=== PATIENT | female | born 1945 | race Caucasian/White ===

== ENCOUNTER 2023-03-06 18:10 | Outpatient (CLI) | payer MEDICARE, SELFPAY | END 2023-03-06 18:11 | disposition home or self-care (01) | LOC: NFLDREF 03-08 05:49 | PROVIDERS: Visit Provider Nurse Practitioner Family | DX: R30.0 Dysuria (principal); N39.0 Urinary tract infection, site not specified | CPT/HCPCS: 87086; 87186 ==

== ENCOUNTER 2023-05-04 16:17 | Outpatient (CLI) | payer MEDICARE, SELFPAY | END 2023-05-04 16:18 | disposition home or self-care (01) | LOC: NFLDREF 05-06 06:38 | PROVIDERS: PCP Registered Nurse; Referring Provider Registered Nurse; Visit Provider Nurse Practitioner Family | DX: N39.0 Urinary tract infection, site not specified (principal) | CPT/HCPCS: 87086 ==

== ENCOUNTER 2023-06-11 15:45 | Outpatient (CLI) | payer MEDICARE, SELFPAY | END 2023-06-11 15:46 | disposition home or self-care (01) | LOC: NFLDREF 06-12 14:59 | PROVIDERS: PCP Registered Nurse; Referring Provider Registered Nurse; Visit Provider Physician Assistant | DX: R30.0 Dysuria (principal); N39.0 Urinary tract infection, site not specified | CPT/HCPCS: 87086; 87186 ==

== ENCOUNTER 2024-03-20 10:49 | Outpatient (CLI) | payer MEDICARE, SELFPAY | END 2024-03-20 10:50 | disposition home or self-care (01) | LOC: NFLDREF 04-07 14:24 | PROVIDERS: PCP Registered Nurse; Referring Provider Registered Nurse; Visit Provider Nurse Practitioner Family | DX: N39.0 Urinary tract infection, site not specified (principal) | CPT/HCPCS: 87086; 87186 ==

== ENCOUNTER 2024-04-22 17:06 | Inpatient (IN) | payer MEDICARE, SELFPAY ==
[2024-04-22] VITALS (23 sets, daily range): BP systolic 99–127; BP diastolic 51–75; PULSE 81–141; RESP 18–20; TEMP 36.4–37.1; O2SAT 92–98; BMI 25.8; BMI 27.8
--- NOTE | 2024-04-22 17:44 | CRLHL7_ITS ---
For Patients: As a result of the Century Cures Act, medical imaging exams and procedure reports are released immediately into your electronic medical record. You may view this report before your referring provider. If you have questions, please contact your health care provider. Indication: Cough and fever Technique: Volumetric multidetector CT images of the chest were obtained without the administration of IV contrast. Comparison: Two-view chest April 22, 2024 Findings: The thoracic inlet and thyroid gland are unremarkable. The thoracic aorta is nonaneurysmal. There is no mediastinal, hilar or axillary adenopathy. There is mild central bronchial thickening with minimal mucoid impaction of the lower lobe bronchi. There is basilar atelectasis and parenchymal scar without dense consolidation, effusion or pneumothorax. There is no evidence of pulmonary mass or suspicious pulmonary nodule. The partially visualized upper abdominal viscera are within normal limits. The thoracic vertebral body heights are grossly maintained with endplate Schmorl`s defects. There is diffuse flowing anterior osteophytosis without evidence of significant spondylolisthesis. Impression: [id number] central bronchial thickening with mucoid impaction of the lower lobe bronchi with basilar atelectasis and parenchymal scar. No dense consolidation or acute cardiopulmonary abnormality. Please note that all CT scans at this facility use dose modulation, iterative reconstruction, and/or weight-based dosing when appropriate to reduce radiation dose to as low as reasonably achievable. Dictated by Horacio Mirza MD @ 04/22/2024 7:16:10 PM (Electronically Signed)
--- NOTE | 2024-04-22 17:47 | ED.GENADULT ---
HPI - General Adult General Date Seen: 04/22/24 Chief complaint: Urogenital Problems, Female Stated complaint: Sent by -needs infusion for aleks barron infec Time Seen by Provider: 04/22/24 17:07 Source: patient, RN notes reviewed, old records reviewed and other Mode of arrival: ambulatory Limitations: no limitations History of Present Illness HPI narrative: Patient is a 79-year-old woman with a history of frequent UTIs, developed an illness over the past couple of days with fevers, weakness, fatigue, congestion and cough. She has also developed some UTI symptoms with suprapubic pain and dysuria. She has had a couple of UTIs in the past month, finished most recent set of antibiotics about a week ago. She has been seen by Urology, she says there has not been a clear way to manage her frequent UTIs, she had been doing pretty well and had not had 1 for about 6 months but in the past month aside several. She has never needed to be hospitalized due to urinary tract infection. She has not had any flank pain. No vomiting. She also says since COVID she has had a chronic cough for the past couple of years, saw podiatric foot and ankle specialist who told her she had bronchial asthma and would likely get pneumonia every time she got sick. Chest x-ray at urgent care was negative. She had greater than 100 white blood cells in her urine and white blood cell count of him was 16. In Urgent Care she was febrile with a temperature of a 101.6? and tachy with a heart rate of 120. Here the fever has resolved and she is only minimally tachycardic with heart rate of 104. She does not smoke or drink. She does have inhaler she uses home. Here today with her . He was recently ill with an upper respiratory illness but does not have fever. Related Data Home Medications ?Medication ?Instructions ?Recorded ?Confirmed bupropion HCl 150 mg 24 hr tablet, 150 mg PO DAILY 03/06/23 04/22/24 extended release losartan 50 mg tablet 50 mg PO DAILY 03/06/23 04/22/24 pregabalin 75 mg capsule 75 mg PO DAILY 03/06/23 04/22/24 fluticasone propionate 50 spray intranasal 04/03/23 04/22/24 mcg/actuation nasal spray,suspension rosuvastatin 20 mg tablet 20 mg PO QDAY 02/26/24 04/22/24 tamsulosin 0.4 mg capsule (Flomax) 0.4 mg PO QDAY 02/26/24 04/22/24 fluticasone 250 mcg-salmeterol 50 1 ea inhalation BID 04/22/24 04/22/24 mcg/dose blistr powdr for inhalation montelukast 10 mg tablet 10 mg PO QPM 04/22/24 04/22/24 omeprazole 20 mg capsule,delayed 20 mg PO DAILY 04/22/24 04/22/24 release Allergies Allergy/AdvReac Type Severity Reaction Status Date / Time No Known Drug Allergies Allergy Verified 04/22/24 17:28 Review of Systems Status of ROS: Reports: 10 or more systems reviewed and unremarkable except as noted in History and below [facility] Medical History (Updated 04/22/24 @ 20:25 by Coco Dexter PA-C) Chronic neck pain ?M54.2 - Cervicalgia (ICD-10) ?G89.29 - Other chronic pain (ICD-10) CKD (chronic kidney disease) ?N18.9 - Chronic kidney disease, unspecified (ICD-10) Major depressive disorder ?F32.9 - Major depressive disorder, single episode, unspecified (ICD-10) Osteoarthritis ?M19.90 - Unspecified osteoarthritis, unspecified site (ICD-10) Hyperlipidemia ?E78.5 - Hyperlipidemia, unspecified (ICD-10) Hypertension ?I10 - Essential (primary) hypertension (ICD-10) Bronchitis ?J40 - Bronchitis, not specified as acute or chronic (ICD-10) Cough ?R05.9 - Cough, unspecified (ICD-10) Dysuria ?R30.0 - Dysuria (ICD-10) Social History Smoking Status: Never smoker Do you use any of these nicotine containing products: None Second hand tobacco smoke exposure: No How often do you have a drink containing alcohol: never AUDIT-C Alcohol total score: 0 Non-prescribed substance use: denies use Exam Narrative: Exam Narrative: Vital signs as noted above. In general, an alert, nontoxic elderly woman. She looks somewhat fatigued. Head: Normocephalic, atraumatic. Eyes: Pupils are equal reactive. Extraocular movements are full. Conjunctivae are normal. ENT: Mucous membranes are moist. Throat is normal. Neck: Supple without lymphadenopathy. No meningeal signs. Heart: Mildly tachycardic, regular. Lungs: A few scattered wheezes. No fine crackles. No increased work of breathing. Abdomen: Soft and nontender. No organomegaly. Extremities: Well perfused. No edema. No calf tenderness. Pulses intact. Neurologic: Patient is alert and oriented to person and place. Speech is fluent. Face is symmetric. Moves all extremities equally. Affect: Normal. Skin: Skin is warm and just very slightly diaphoretic. No rashes. Const: Vital Signs, click to edit/add: Vital Signs - 24 hr 04/22/24 17:21 04/22/24 18:31 04/22/24 18:32 Temperature 98.4 F Pulse Rate 83 85 Pulse Rate [Pulse Oximeter] 104 H Respiratory Rate 18 Blood Pressure 116/60 Blood Pressure [Ri ght Upper Arm] 113/75 Pulse Oximetry 93 92 93 Oxygen Delivery Me thod Room Air 04/22/24 18:45 04/22/24 19:00 04/22/24 19:04 Temperature Pulse Rate 89 88 87 Pulse Rate [Pulse Oximeter] Respiratory Rate Blood Pressure 99/55 L Blood Pressure [Ri ght Upper Arm] Pulse Oximetry 97 94 95 Oxygen Delivery Me thod 04/22/24 19:05 04/22/24 19:15 04/22/24 19:19 Temperature Pulse Rate 99 141 H 87 Pulse Rate [Pulse Oximeter] Respiratory Rate Blood Pressure 120/68 Blood Pressure [Ri ght Upper Arm] Pulse Oximetry 96 98 98 Oxygen Delivery Me thod 04/22/24 19:20 04/22/24 19:30 04/22/24 19:32 Temperature Pulse Rate 85 88 95 Pulse Rate [Pulse Oximeter] Respiratory Rate Blood Pressure 125/72 Blood Pressure [Ri ght Upper Arm] Pulse Oximetry 97 96 96 Oxygen Delivery Me thod 04/22/24 19:45 04/22/24 19:47 04/22/24 20:00 Temperature Pulse Rate 82 81 84 Pulse Rate [Pulse Oximeter] Respiratory Rate Blood Pressure 110/58 L Blood Pressure [Ri ght Upper Arm] Pulse Oximetry 97 96 95 Oxygen Delivery Me thod 04/22/24 20:02 04/22/24 20:17 Temperature Pulse Rate Pulse Rate [Pulse Oximeter] Respiratory Rate Blood Pressure 103/53 L 111/51 L Blood Pressure [Ri ght Upper Arm] Pulse Oximetry Oxygen Delivery Me thod Documenting provider has reviewed patient's vital signs: yes Course Course ED Course: Records reviewed. Most recent UTI INR system was at the end of February when she grew a in E coli which was resistant to Bactrim and ampicillin. She was treated with Cipro at that time. Labs from today in Urgent Care reviewed as noted in the HPI. At this time she has fever with associated urinary symptoms as well as upper respiratory symptoms. Chest x-ray is unrevealing but she is slightly hypoxic on room air with O2 sats around 93%. I do think it is worth giving her a neb here, but I also am going to do a CT of the chest to make sure she does not have a pneumonia as an explanation for her respiratory symptoms and fever. She clearly has urinary tract infection, there is otherwise no sign of pyelonephritis, she does not have a history of kidney stones and does not give a history suggestive of kidney stone. Lactate and procalcitonin ordered in an effort to evaluate for possible sepsis. Will give a L of normal saline. Other labs are notable for CRP of 14.3 and procalcitonin of 1.93. Blood cultures were obtained. A CT of the chest by my review did not show significant consolidation. Final radiology read as follows:Findings: The thoracic inlet and thyroid gland are unremarkable. The thoracic aorta is nonaneurysmal. There is no mediastinal, hilar or axillary adenopathy. There is mild central bronchial thickening with minimal mucoid impaction of the lower lobe bronchi. There is basilar atelectasis and parenchymal scar without dense consolidation, effusion or pneumothorax. There is no evidence of pulmonary mass or suspicious pulmonary nodule. The partially visualized upper abdominal viscera are within normal limits. The thoracic vertebral body heights are grossly maintained with endplate Schmorl`s defects. There is diffuse flowing anterior osteophytosis without evidence of significant spondylolisthesis. Impression: [id number] central bronchial thickening with mucoid impaction of the lower lobe bronchi with basilar atelectasis and parenchymal scar. No dense consolidation or acute cardiopulmonary abnormality. She does appear to have some upper respiratory symptoms and some bronchial thickening, but no clear explanation for fever from a respiratory source. For now, working diagnosis is UTI with sepsis. I have ordered Zosyn 3.375 g IV. I did order an initial L of fluid, apparently a small amount of that went in and then the IV infiltrated so they are working on getting another IV established. Plan will be admission for IV antibiotics to the hospitalist service. Vital Signs Vital signs: Initial Vital Signs Temperature 98.4 F 04/22/24 17:21 Temperature Source Oral 04/22/24 17:21 Pulse Rate 104 H 04/22/24 17:21 Respiratory Rate 18 04/22/24 17:21 Blood Pressure 113/75 04/22/24 17:21 Blood Pressure Mean 87 04/22/24 17:21 Blood Pressure Position Sitting 04/22/24 17:21 Pulse Oximetry 93 04/22/24 17:21 Oxygen Delivery Method Room Air 04/22/24 17:21 Vital Signs Temperature 98.4 F 04/22/24 17:21 Pulse Rate 104 H 04/22/24 17:21 Respiratory Rate 18 04/22/24 17:21 Blood Pressure 113/75 04/22/24 17:21 Pulse Oximetry 93 04/22/24 17:21 Oxygen Delivery Method Room Air 04/22/24 17:21 Temperature 98.4 F 04/22/24 17:21 Pulse Rate 84 04/22/24 20:00 Respiratory Rate 18 04/22/24 17:21 Blood Pressure 111/51 L 04/22/24 20:17 Pulse Oximetry 95 04/22/24 20:00 Oxygen Delivery Method Room Air 04/22/24 17:21 Medications Administered Medications: Discontinued Medications Generic Name Dose Route Start Last Admin Trade Name Freq PRN Reason Stop Dose Admin Albuterol/Ipratropium 1 neb 04/22/24 17:53 04/22/24 18:35 Iprat-Albut 0.5-2.5 Mg/3 Ml Neb IH 04/22/24 17:54 1 neb ONCE ONE Administration Sodium Chloride 1,000 mls @ 1,000 mls/hr 04/22/24 17:45 04/22/24 20:00 0.9 % Sodium Chloride 1000 Ml IV 04/22/24 18:44 1,000 mls/hr .Q1H DOROTHY Administration Piperacillin Sod/Tazobactam 100 mls @ 100 mls/hr 04/22/24 19:09 04/22/24 20:34 Sod 3.375 gm/ Sodium Chloride IVPB 04/22/24 19:10 100 mls/hr ONCE ONE Administration Medical Decision Making Lab Data Labs: Lab Results 04/22/24 Range/Units 18:05 Sodium 129 L (135-149) mmol/L Potassium 3.6 (3.6-5.1) mmol/L Chloride 100 (96-114) mmol/L Carbon Dioxide 22 (20-32) mmol/L Anion Gap 7 (7-15) mEq/L BUN 13 (7-30) mg/dL Creatinine 1.0 (0.5-1.5) mg/dL Estimated Creat Clear 41.72 Estimated GFR 58 ml/min Glucose 93 (60-115) mg/dL Lactate 1.1 (0.5-1.9) mmol/L Calcium 8.8 (8.4-10.6) mg/dL C-Reactive Protein 14.3 H (0.5-1.0) mg/dL Procalcitonin 1.93 H (<0.50) ng/mL Discharge Plan Discharge Clinical Impression: Sepsis Urinary tract infection Qualifiers: Urinary tract infection type: acute cystitis Hematuria presence: without hematuria Qualified Code(s): N30.00 - Acute cystitis without hematuria Patient Disposition: Admitted As Observation Condition: Stable
[2024-04-22 18:15] LABS: Lactate Sepsis w/Reflex* 1.1 mmol/L (0.5-1.9)
[2024-04-22 18:30] LABS: Chloride* 100 mmol/L (96-114); Potassium* 3.6 mmol/L (3.6-5.1); Sodium* 129 mmol/L (135-149)
[2024-04-22 18:32] LABS: Est. Creatinine Clearance* 41.72; Estimated Glomerular Filt Rate 58 ml/min
[2024-04-22 18:33] LABS: Anion Gap 7 mEq/L (7-15); Blood Urea Nitrogen* 13 mg/dL (7-30); Carbon Dioxide* 22 mmol/L (20-32); Glucose* 93 mg/dL (60-115)
[2024-04-22 18:34] LABS: Calcium* 8.8 mg/dL (8.4-10.6)
[2024-04-22] MEDS: IPRAT-ALBUT 0.5-2.5 MG/3 ML NEB 1 NEB IH (18:35)
[2024-04-22 18:49] LABS: C Reactive Protein* 14.3 mg/dL (0.5-1.0)
[2024-04-22 19:01] LABS: Procalcitonin* 1.93 ng/mL (<0.50)
--- NOTE | 2024-04-22 19:55 | PM.IMHP1 ---
Hospitalist- H&P: HPI History of Present Illness Date Seen: 04/22/24 Chief complaint: Sent by -needs infusion for aleks barron infec Narrative: Usman Willoughby is a 79 year old female past medical history significant for hypertension, hyperlipidemia, CKD, MDD, OA is admitted to the medical floor from the ED for further management sepsis with suspected community-acquired pneumonia and UTI. Patient was seen at [facility] urgent care earlier today with complaints of fever, body aches, chills, fatigue x2 days. Rather suddenly last evening, developed cough and significant chest congestion with worsening fatigue. Temperature at home was as high as 101.5?. At the clinic, fever recorded as 101.6?. Denies shortness of breath or chest pain but can hear herself rattling. Has not been hypoxic. No recent nausea, vomiting, diarrhea. Previous history of C difficile in July. Poor appetite and poor oral intake. Has a history of recurrent urinary tract infections, now reporting suprapubic pain and hesitancy though now following IV fluids this has improved. Denies flank pain or vomiting. No recent travel. was recently ill with an URI. Patient has a past history of COVID, now with a chronic cough, previously seen by pulmonology who told her she has something like bronchial asthma. Uses inhalers as needed. Nonsmoker. Denies alcohol use. Review of Systems Narrative: REVIEW OF SYSTEMS: Complete review of systems performed and negative unless otherwise stated in HPI or below. [facility] Medical History (Updated 04/22/24 @ 21:32 by Coco Dexter PA-C) Chronic neck pain ?M54.2 - Cervicalgia (ICD-10) ?G89.29 - Other chronic pain (ICD-10) CKD (chronic kidney disease) ?N18.9 - Chronic kidney disease, unspecified (ICD-10) Major depressive disorder ?F32.9 - Major depressive disorder, single episode, unspecified (ICD-10) Osteoarthritis ?M19.90 - Unspecified osteoarthritis, unspecified site (ICD-10) Hyperlipidemia ?E78.5 - Hyperlipidemia, unspecified (ICD-10) Hypertension ?I10 - Essential (primary) hypertension (ICD-10) Bronchitis ?J40 - Bronchitis, not specified as acute or chronic (ICD-10) Cough ?R05.9 - Cough, unspecified (ICD-10) Dysuria ?R30.0 - Dysuria (ICD-10) Social History Smoking Status: Never smoker Do you use any of these nicotine containing products: None Second hand tobacco smoke exposure: No How often do you have a drink containing alcohol: never AUDIT-C Alcohol total score: 0 Non-prescribed substance use: denies use Meds Home Medications and Allergies Home Medications ?Medication ?Instructions ?Recorded ?Confirmed ?Type bupropion HCl 150 mg 24 hr tablet, 150 mg PO DAILY 03/06/23 04/22/24 History extended release losartan 50 mg tablet 50 mg PO DAILY 03/06/23 04/22/24 History pregabalin 75 mg capsule 75 mg PO DAILY 03/06/23 04/22/24 History fluticasone propionate 50 spray intranasal 04/03/23 04/22/24 History mcg/actuation nasal spray,suspension rosuvastatin 20 mg tablet 20 mg PO QDAY 02/26/24 04/22/24 History tamsulosin 0.4 mg capsule (Flomax) 0.4 mg PO QDAY 02/26/24 04/22/24 History fluticasone 250 mcg-salmeterol 50 1 ea inhalation BID 04/22/24 04/22/24 History mcg/dose blistr powdr for inhalation montelukast 10 mg tablet 10 mg PO QPM 04/22/24 04/22/24 History omeprazole 20 mg capsule,delayed 20 mg PO DAILY 04/22/24 04/22/24 History release Allergies Allergy/AdvReac Type Severity Reaction Status Date / Time No Known Drug Allergies Allergy Verified 04/22/24 17:28 Exam Narrative: Exam Narrative: PHYSICAL EXAM General: Pleasant, conversant, NAD HEENT: Normocephalic, atraumatic, sclera white, EOMI, oral mucosa moist Cardiovascular: RRR, S1S2. No pitting edema Pulmonary: Coarse breath sounds throughout with rhonchi, no expiratory wheezes. No dyspnea on room air Abdominal: Soft, nondistended, NTTP Neurological: Alert, answering questions appropriately, cranial nerves intact, no focal findings Extremities: No gross joint deformity or swelling. AROMI. Neurovascularly intact Skin: Warm, dry. Const: Vital Signs, click to edit/add: Vital Signs - 24 hr 04/22/24 17:21 04/22/24 18:31 04/22/24 18:32 Temperature 98.4 F Pulse Rate 83 85 Pulse Rate [Pulse Oximeter] 104 H Respiratory Rate 18 Blood Pressure 116/60 Blood Pressure [Ri ght Upper Arm] 113/75 Pulse Oximetry 93 92 93 Oxygen Delivery Me thod Room Air 04/22/24 18:45 04/22/24 19:00 04/22/24 19:04 Temperature Pulse Rate 89 88 87 Pulse Rate [Pulse Oximeter] Respiratory Rate Blood Pressure 99/55 L Blood Pressure [Ri ght Upper Arm] Pulse Oximetry 97 94 95 Oxygen Delivery Me thod 04/22/24 19:05 04/22/24 19:15 04/22/24 19:19 Temperature Pulse Rate 99 141 H 87 Pulse Rate [Pulse Oximeter] Respiratory Rate Blood Pressure 120/68 Blood Pressure [Ri ght Upper Arm] Pulse Oximetry 96 98 98 Oxygen Delivery Me thod Hospitalist - H&P: Result Labs Labs: [facility] 04/22/24 18:05 Sodium 129 L Potassium 3.6 Chloride 100 Carbon Dioxide 22 BUN 13 Creatinine 1.0 Glucose [address] scan - chest: Attestation: I have reviewed the pertinent imaging results. Radiologist's impression: Volumetric multidetector CT images of the chest were obtained without the administration of IV contrast. Comparison: Two-view chest April 22, 2024 Findings: The thoracic inlet and thyroid gland are unremarkable. The thoracic aorta is nonaneurysmal. There is no mediastinal, hilar or axillary adenopathy. There is mild central bronchial thickening with minimal mucoid impaction of the lower lobe bronchi. There is basilar atelectasis and parenchymal scar without dense consolidation, effusion or pneumothorax. There is no evidence of pulmonary mass or suspicious pulmonary nodule. The partially visualized upper abdominal viscera are within normal limits. The thoracic vertebral body heights are grossly maintained with endplate Schmorl`s defects. There is diffuse flowing anterior osteophytosis without evidence of significant spondylolisthesis. Impression: [id number] central bronchial thickening with mucoid impaction of the lower lobe bronchi with basilar atelectasis and parenchymal scar. No dense consolidation or acute cardiopulmonary abnormality. Chest x-ray: Attestation: I have reviewed the pertinent imaging results. Radiologist's impression: PA and lateral 2 view chest. FINDINGS: Lung volumes are good. No focal or diffuse opacities. No pulmonary edema. No pleural effusion. No pneumothorax. No pneumomediastinum. Normal cardiomediastinal silhouette. Bones: Normal for age. IMPRESSION: Normal chest radiographs. Assessment and Plan Assessment and plan (1) Sepsis: Problem comment: [facility] Urgent Care earlier today - HR 120, T 101.6, WBC 15.81, lactate WNL 1.1, source appears to be pneumonia/bronchiectasis and cystitis Continue Zosyn as initiated in ED Continue IVF Telemetry Not currently requiring oxygen supplementation BC/UC pending, follow morning labs Status: Acute (2) CAP (community acquired pneumonia): Problem comment: CT shows [id number] central bronchial thickening with mucoid impaction of the lower lobe bronchi with basilar atelectasis and parenchymal scar. (CXR without acute findings) Continue Zosyn as initiated in ED Mucinex b.i.d., Tessalon Perles p.r.n. incentive spirometry, Aerobika Procalcitonin 1.93, CRP 14.3, triple swab negative, strep pneumo/Legionella ordered, sputum culture ordered Status: Acute (3) Urinary tract infection: Problem comment: UA cloudy, 2+ LE, >100 WBC, bacteria. UC pending Continue Zosyn as initiated in ED History of recurrent UTIs, previously resistant to Bactrim, has been on Macrobid, ciprofloxacin in the past Has been seen by Urology Status: Acute (4) Hyponatremia: Problem comment: Acute, in setting of infection, fever/insensible loss Sodium 129, no recent prior abnormal lab values, recheck following IVF in ED Status: Acute (5) CKD (chronic kidney disease): Problem comment: Creatinine 1.0, previous 0.9-1.99 Avoid nephrotoxic medications, renally dose IV antibiotics, monitor Status: Acute (6) Hypertension: Problem comment: Continue losartan when reviewed by pharmacy Status: Chronic (7) Hyperlipidemia: Problem comment: Continue statin when reviewed by pharmacy Status: Chronic Total Time Spent Total Time Spent: Total time spent caring for the patient today was 75 minutes. This includes time spent for the visit reviewing the chart, time spent during the visit, time spent after the visit and documentation and planning in coordination of care.
[2024-04-22] MEDS: 0.9 % SODIUM CHLORIDE 1000 ml 1,000 ML IV (20:00)
[2024-04-22] MEDS: PIPERACILLIN/TAZOBACTAM 3.375 GM in 0.9 % SODIUM CHLORIDE Mini-bag 100 ML IVPB (20:34)
[2024-04-22 20:41] LABS: Lab Add On Test New Spec Needed
--- NOTE | 2024-04-22 20:42 | ED.NURSE ---
Pt report given to jed PEREZ. Pt to CCU4
[2024-04-22 20:54] LABS: Magnesium* 2.1 mg/dL (1.5-2.6)
[2024-04-22] MEDS: guaiFENesin 600 MG TAB.ER.12H PO (21:50)
[2024-04-22] MEDS: 0.9 % SODIUM CHLORIDE 1000 ml 1,000 ML 125 ML IV (21:50)
[2024-04-22] MEDS: BENZONATATE 100 MG CAPSULE PO (21:50)
[2024-04-22] MEDS: ENOXAPARIN 30 MG/0.3ML INJ SUBCUT (21:50)
[2024-04-22] MEDS: ACETAMINOPHEN 325 MG TABLET PO (21:53)
[2024-04-22 22:17] LABS: Sodium* 133 mmol/L (135-149)
[2024-04-23] VITALS (10 sets, daily range): BP systolic 99–158; BP diastolic 59–74; PULSE 82–90; RESP 16–20; TEMP 35.9–37.7; O2SAT 95–99
[2024-04-23] MEDS: PIPERACILLIN/TAZOBACTAM 3.375 GM in 0.9 % SODIUM CHLORIDE Mini-bag 100 ML IVPB ×4 (00:57→18:52)
[2024-04-23] MEDS: ACETAMINOPHEN 325 MG TABLET PO ×2 (05:24→15:55)
[2024-04-23] MEDS: 0.9 % SODIUM CHLORIDE 1000 ml 1,000 ML 125 ML IV ×2 (05:25→15:55)
--- NOTE | 2024-04-23 06:21 | PC.NURSE ---
End of shift [id number]: Pt arrived to the floor @ 2049. She is A&O x4, afebrile and VSS. She is SBA with ambulation and transfers. Pt had the chills and rigors upon arrival to the floor with stable temperature. Pt requested PRN Tylenol overnight for management of feeling feverish, last given @ 0525. T-max 99.8 overnight. PIV in right hand C/D/I and infusing NaCl @ 125 mL/hr. TELE reads SR- ST rate in the 80s-low 100s. Pt denies having any pain, nausea or dizziness. Experienced some urinary hesitancy & dysuria but once IVF was initiated, U/O increased overnight. Na recheck was 133 @ 2100, up from previous value of 129. Pt has collection cup at bedside for sputum sample attempt.
[2024-04-23 07:11] LABS: Basophils Absolute Auto 0.02 K/uL (0.00-0.30); Basophils Percent Auto 0.2 % (0.0-3.0); Eosinophils Absolute Auto 0.01 K/uL (0.00-0.50); Eosinophils Percent Auto 0.1 % (0.0-7.0); Hematocrit 33.3 % (33.0-51.0); Immature Granulocytes Abs Auto 0.03 K/uL (0.00-0.30); Immature Granulocytes Pct Auto 0.3 %; Lymphocytes Percent Auto 6.5 % (20-44); Mean Corpuscular HGB Conc 33 gm/dL (32-36); Mean Corpuscular Hemoglobin 30 pg (26-34); Mean Corpuscular Volume 92 fL (80-100); Monocytes Percent Auto 5.5 % (0.0-11.0); Neutrophils Percent Auto 87.4 % (42.0-72.0); Platelet Count* 254 K/uL (140-440); RDW Coefficient of Variation % 14.3 % (11.5-15.5); Red Blood Count 3.63 m/uL (4.00-5.20); White Blood Count* 10.74 K/uL (4.50-11.00)
[2024-04-23 07:14] LABS: Slide Review Reflex No
[2024-04-23 07:29] LABS: Chloride* 104 mmol/L (96-114); Potassium* 3.9 mmol/L (3.6-5.1); Sodium* 131 mmol/L (135-149)
[2024-04-23 07:32] LABS: Anion Gap 8 mEq/L (7-15); Carbon Dioxide* 19 mmol/L (20-32); Creatinine* 0.9 mg/dL (0.5-1.5); Est. Creatinine Clearance* 41.72; Estimated Glomerular Filt Rate 65 ml/min
[2024-04-23 07:33] LABS: Blood Urea Nitrogen* 10 mg/dL (7-30); Calcium* 8.3 mg/dL (8.4-10.6); Glucose* 69 mg/dL (60-115)
[2024-04-23 07:44] LABS: Procalcitonin* 1.68 ng/mL (<0.50)
[2024-04-23 08:19] LABS: C Reactive Protein* 20.7 mg/dL (0.5-1.0)
[2024-04-23] MEDS: BENZONATATE 100 MG CAPSULE PO ×3 (08:55→21:23)
[2024-04-23] MEDS: guaiFENesin 600 MG TAB.ER.12H PO ×2 (08:55→21:23)
--- NOTE | 2024-04-23 09:21 | PM.IMPN1 ---
Progress Note: A&P Assessment and plan (1) Sepsis: Problem details: - During [facility] Urgent Care visit on 04/22: HR 120, T 101.6, WBC 15.81, lactate WNL @ 1.1, source appears to be pneumonia/bronchiectasis + cystitis - Zosyn initiated on 04/22 - continue IVFs and telemetry - objectively and subjectively improving on 04/23/24 - blood and urine cultures currently NGTD Status: Acute (2) CAP (community acquired pneumonia): Problem details: - CT 04/22: [id number] central bronchial thickening, mucoid impaction of the lower lobe bronchi, basilar atelectasis, parenchymal scar - Continue Zosyn as initiated in ED (04/22) - Mucinex b.i.d., Tessalon Perles p.r.n. incentive spirometry, Aerobika, home medications - strep pneumo/Legionella ordered, sputum culture ordered Status: Acute (3) Urinary tract infection: Problem details: - UA cloudy, 2+ LE, >100 WBC, bacteria. UC pending - Continue Zosyn as initiated in ED (04/22) - History of recurrent UTIs, previously resistant to Bactrim, has been on Macrobid, ciprofloxacin in the past - sees Urology as an outpatient Status: Acute (4) Hyponatremia: Problem details: - Acute, in setting of infection, fever/insensible loss, poor po intake - Sodium 129 on admission, 131 on 04/23 - encourage protein intake, continue low dose IVFs Status: Acute (5) CKD (chronic kidney disease): Problem details: - Creatinine 1.0 on admission (down to 0.9 on 04/23), previous 0.9-1.99 - Avoid nephrotoxic medications, renally dose IV antibiotics, monitor Status: Acute (6) Hypertension: Problem details: - continue home medications with holding parameters Status: Chronic (7) Hyperlipidemia: Problem details: - continue home statin Status: Chronic (8) History of Clostridioides difficile infection: Problem details: - severe illness in July 2023 - per patient, whenever she is treated with abx by her Urologist (given recurrent UTI history), she is empirically covered with oral Vancomycin - she is requesting empiric Vanco at this time given IV Zosyn treatment, will add this to her regimen Status: Acute Plan - per above - renally dosed Lovenox for ppx - discharge to home when medically appropriate for discharge Subjective Date Seen: 04/23/24 Interval history: Usman was admitted to the hospital last night (04/22) for concerns of sepsis 2/2 UTI and CAP. Since admission, fever has improved (Tmax of 101.6 on 04/22), WBC is down to 10 from 15, heart rate has normalized. Procalcitonin is trending downward. Blood and Urine Cultures exhibit NGTD. She is tolerating room air and has minimally coughing. History of recurrent UTIs (Klebsiella and E Coli). Had C-Diff infection in 07/2023, typically is placed on BID Vancomycin orally empirically when she's on antibiotics, requesting that today. Usman has no concerns for hospitalist team this morning Exam Narrative: Exam Narrative: GEN: Alert and laying comfortably in bed, appears ill but not toxic HEENT: EOMIs bilaterally, no scleral icterus CV: RRR, No concerning murmurs R: Decreased breath sounds with bibasilar rhonchi, no wheezing Ext: wwp, no concerning edema Skin: No concerning skin lesions or rashes on exposed skin Neuro: Nonfocal Psych: Appropriate Const: Vital Signs, click to edit/add: Vital Signs - 24 hr 04/22/24 17:21 04/22/24 18:31 04/22/24 18:32 Temperature 98.4 F Pulse Rate 83 85 Pulse Rate [Pulse Oximeter] 104 H Respiratory Rate 18 Blood Pressure 116/60 Blood Pressure [Ri ght Arm] Blood Pressure [Ri ght Upper Arm] 113/75 Pulse Oximetry 93 92 93 Oxygen Delivery Me thod Room Air 04/22/24 18:45 04/22/24 19:00 04/22/24 19:04 Temperature Pulse Rate 89 88 87 Pulse Rate [Pulse Oximeter] Respiratory Rate Blood Pressure 99/55 L Blood Pressure [Ri ght Arm] Blood Pressure [Ri ght Upper Arm] Pulse Oximetry 97 94 95 Oxygen Delivery Me thod 04/22/24 19:05 04/22/24 19:15 04/22/24 19:19 Temperature Pulse Rate 99 141 H 87 Pulse Rate [Pulse Oximeter] Respiratory Rate Blood Pressure 120/68 Blood Pressure [Ri ght Arm] Blood Pressure [Ri ght Upper Arm] Pulse Oximetry 96 98 98 Oxygen Delivery Me thod 04/22/24 19:20 04/22/24 19:30 04/22/24 19:32 Temperature Pulse Rate 85 88 95 Pulse Rate [Pulse Oximeter] Respiratory Rate Blood Pressure 125/72 Blood Pressure [Ri ght Arm] Blood Pressure [Ri ght Upper Arm] Pulse Oximetry 97 96 96 Oxygen Delivery Me thod 04/22/24 19:45 04/22/24 19:47 04/22/24 20:00 Temperature Pulse Rate 82 81 84 Pulse Rate [Pulse Oximeter] Respiratory Rate Blood Pressure 110/58 L Blood Pressure [Ri ght Arm] Blood Pressure [Ri ght Upper Arm] Pulse Oximetry 97 96 95 Oxygen Delivery Me thod 04/22/24 20:02 04/22/24 20:17 04/22/24 20:31 Temperature Pulse Rate 89 Pulse Rate [Pulse Oximeter] Respiratory Rate Blood Pressure 103/53 L 111/51 L Blood Pressure [Ri ght Arm] Blood Pressure [Ri ght Upper Arm] Pulse Oximetry Oxygen Delivery Me thod 04/22/24 20:31 04/22/24 20:32 04/22/24 20:37 Temperature 97.6 F Pulse Rate 82 Pulse Rate [Pulse Oximeter] 87 Respiratory Rate 20 Blood Pressure 106/52 L Blood Pressure [Ri ght Arm] 127/57 L Blood Pressure [Ri ght Upper Arm] Pulse Oximetry 98 97 Oxygen Delivery Me thod Room Air 04/22/24 21:53 04/22/24 23:00 04/22/24 23:00 Temperature 98 F 98.7 F Pulse Rate 82 Pulse Rate [Pulse Oximeter] 87 Respiratory Rate 18 Blood Pressure Blood Pressure [Ri ght Arm] 116/58 L Blood Pressure [Ri ght Upper Arm] Pulse Oximetry 95 Oxygen Delivery Me thod Room Air 04/22/24 23:02 04/22/24 23:02 04/23/24 03:00 Temperature 98 F 97.6 F Pulse Rate Pulse Rate [Pulse Oximeter] 87 85 Respiratory Rate 20 20 18 Blood Pressure Blood Pressure [Ri ght Arm] 127/57 L 158/67 H Blood Pressure [Ri ght Upper Arm] Pulse Oximetry 98 98 98 Oxygen Delivery Me thod Room Air Room Air Room Air 04/23/24 05:24 04/23/24 06:38 04/23/24 07:25 Temperature 99.8 F H 98.2 F Pulse Rate 82 Pulse Rate [Pulse Oximeter] Respiratory Rate Blood Pressure Blood Pressure [Ri ght Arm] Blood Pressure [Ri ght Upper Arm] Pulse Oximetry Oxygen Delivery Me thod Labs Labs: Laboratory Results - last 24 hr 04/22/24 04/22/24 04/22/24 09:55 18:05 20:29 WBC RBC Hgb Hct MCV MCH MCHC RDW Coeff of Ashish Plt Count Neut % (Auto) Lymph % (Auto) [place] % (Auto) Eos % (Auto) Baso % (Auto) Neut # (Auto) Lymph # (Auto) [place] # (Auto) Eos # (Auto) Baso # (Auto) Abs Immat Gran (auto) Imm/Tot Granulo (auto) Sodium 133 L 129 L Potassium 3.6 Chloride 100 Carbon Dioxide 22 Anion Gap 7 BUN 13 Creatinine 1.0 Estimated Creat Clear 41.72 Estimated GFR 58 Glucose 93 Lactate 1.1 Calcium 8.8 Magnesium 2.1 C-Reactive Protein 14.3 H Procalcitonin 1.93 H Lab Acknowledgement New Spec Needed 04/23/24 05:53 WBC 10.74 RBC 3.63 L Hgb 11.0 L Hct 33.3 MCV 92 MCH 30 MCHC 33 RDW Coeff of Ashish 14.3 Plt Count 254 Neut % (Auto) 87.4 H Lymph % (Auto) 6.[address] [place] % (Auto) 5.5 Eos % (Auto) 0.1 Baso % (Auto) 0.2 Neut # (Auto) 9.40 H Lymph # (Auto) 0.[address] [place] # (Auto) 0.60 Eos # (Auto) 0.01 Baso # (Auto) 0.02 Abs Immat Gran (auto) 0.03 Imm/Tot Granulo (auto) 0.3 Sodium 131 L Potassium 3.9 Chloride 104 Carbon Dioxide 19 L Anion Gap 8 BUN 10 Creatinine 0.9 Estimated Creat Clear 41.72 Estimated GFR 65 Glucose 69 Lactate Calcium 8.3 L Magnesium C-Reactive Protein 20.7 H Procalcitonin 1.68 H Lab Acknowledgement
[2024-04-23] MEDS: buPROPion XL 150 MG TABLET PO (10:39)
[2024-04-23] MEDS: VANCOMYCIN 125 MG CAPSULE PO ×3 (10:40→21:23)
[2024-04-23] MEDS: TAMSULOSIN HCL 0.4 MG CAPSULE PO (10:40)
[2024-04-23] MEDS: OMEPRAZOLE 20 MG CAPSULE DR PO (10:40)
[2024-04-23] MEDS: ROSUVASTATIN CALCIUM 10 MG TABLET 20 MG PO (10:40)
[2024-04-23] MEDS: LACTOBACILLUS ACIDOPHILUS 1 TABLET 1 TAB PO ×2 (12:17→18:52)
[2024-04-23 13:28] LABS: CDIFFEPI 027 PRESUMPTIVE NEGATIVE (Negative)
[2024-04-23 13:44] LABS: C.Difficile POSITIVE (Negative)
--- NOTE | 2024-04-23 15:04 | PC.NURSE ---
End of shift: Patient pleasant and cooperative, A&O. VSS, afebrile. Patient denies pain this shift. Up independently to the bathroom.
[2024-04-23] MEDS: ONDANSETRON 2 MG/ML inj 4 MG IVP (16:31)
[2024-04-23] MEDS: MONTELUKAST 10 MG TABLET PO (18:52)
[2024-04-23] MEDS: ENOXAPARIN 30 MG/0.3ML INJ SUBCUT (21:23)
[2024-04-23] MEDS: PREGABALIN 75 MG CAPSULE PO (21:23)
[2024-04-24] MEDS: PIPERACILLIN/TAZOBACTAM 3.375 GM in 0.9 % SODIUM CHLORIDE Mini-bag 100 ML IVPB ×2 (00:58→06:24)
[2024-04-24 01:07] VITALS: PULSE 78; RESP 20
[2024-04-24] MEDS: 0.9 % SODIUM CHLORIDE 1000 ml 1,000 ML 125 ML IV (02:31)
[2024-04-24 05:25] VITALS: BP 140/70; PULSE 88; RESP 20; TEMP 37.2; O2SAT 93
[2024-04-24] MEDS: OMEPRAZOLE 20 MG CAPSULE DR PO (06:24)
[2024-04-24 06:46] LABS: Basophils Absolute Auto 0.02 K/uL (0.00-0.30); Basophils Percent Auto 0.2 % (0.0-3.0); Eosinophils Percent Auto 1.2 % (0.0-7.0); Hemoglobin* 9.9 gm/dL (12.0-16.0); Immature Granulocytes Abs Auto 0.02 K/uL (0.00-0.30); Immature Granulocytes Pct Auto 0.2 %; Lymphocytes Absolute Auto 1.79 K/uL (0.90-2.90); Lymphocytes Percent Auto 21.7 % (20-44); Mean Corpuscular HGB Conc 33 gm/dL (32-36); Mean Corpuscular Hemoglobin 31 pg (26-34); Mean Corpuscular Volume 92 fL (80-100); Monocytes Percent Auto 9.1 % (0.0-11.0); Neutrophils Absolute Auto 5.57 K/uL (1.7-7.0); Neutrophils Percent Auto 67.6 % (42.0-72.0); Platelet Count* 232 K/uL (140-440); RDW Coefficient of Variation % 14.1 % (11.5-15.5); Red Blood Count 3.25 m/uL (4.00-5.20); White Blood Count* 8.25 K/uL (4.50-11.00)
[2024-04-24 06:50] LABS: Slide Review Reflex No
[2024-04-24 07:00] VITALS: BP 141/95; PULSE 81; RESP 20; TEMP 36.4; O2SAT 96
[2024-04-24 07:09] LABS: Chloride* 111 mmol/L (96-114); Potassium* 3.6 mmol/L (3.6-5.1); Sodium* 134 mmol/L (135-149)
[2024-04-24 07:11] LABS: Anion Gap 3 mEq/L (7-15); Aspartate Amino Transferase* 41 U/L (12-35); Bilirubin Total* 0.5 mg/dL (0.1-1.5); Carbon Dioxide* 20 mmol/L (20-32); Creatinine* 0.9 mg/dL (0.5-1.5); Est. Creatinine Clearance* 41.72; Estimated Glomerular Filt Rate 65 ml/min; Total Protein* 5.7 g/dL (6.0-8.3)
[2024-04-24 07:12] LABS: Alanine Aminotransferase* 40 U/L (4-35); Alkaline Phosphatase* 116 U/L (40-150); Blood Urea Nitrogen* 7 mg/dL (7-30); Calcium* 8.1 mg/dL (8.4-10.6); Glucose* 100 mg/dL (60-115)
[2024-04-24 07:24] LABS: Procalcitonin* 1.13 ng/mL (<0.50)
--- NOTE | 2024-04-24 07:36 | PC.NURSE ---
End of shift [id number] - Pt alert, oriented, and cooperative. Up independent in room, continent of bowel and bladder. Pt reported decreased frequency in stools overnight. Denies pain, nausea, SOB. Observed to sleep during shift. Tolerating RA, regular diet/fluids. Afebrile, VSS. Pt appears to be resting comfortably in bed at end of shift.
[2024-04-24] MEDS: BENZONATATE 100 MG CAPSULE PO (09:23)
[2024-04-24] MEDS: buPROPion XL 150 MG TABLET PO (09:23)
[2024-04-24] MEDS: LACTOBACILLUS ACIDOPHILUS 1 TABLET 1 TAB PO (09:23)
[2024-04-24] MEDS: ROSUVASTATIN CALCIUM 10 MG TABLET 20 MG PO (09:24)
[2024-04-24] MEDS: LOSARTAN POTASSIUM 50 MG TABLET PO (09:24)
[2024-04-24] MEDS: guaiFENesin 600 MG TAB.ER.12H PO (09:24)
[2024-04-24] MEDS: VANCOMYCIN 125 MG CAPSULE PO (09:25)
[2024-04-24] MEDS: TAMSULOSIN HCL 0.4 MG CAPSULE PO (09:25)
--- NOTE | 2024-04-24 12:13 | PC.NURSE ---
Discharge note: Pt friendly and cooperative. A/O and independent in her room. States loose stools have subsided and denies any nausea or vomiting. VS WNL and LS with minimal coarse rhonchi on expiration bibasilarly. Denies pain. IV dc'd, catheter intact. Pt and spouse verbalized understanding of discharge instructions and plans to keep previously scheduled doctor appointment. Pt was discharged to home via wheelchair in the care of her at 10:32
--- NOTE | 2024-04-24 13:26 | P.DS_ITS ---
DS: Providers Provider Date Seen: 04/24/24 Date of admission: 04/22/24 20:53 Primary care physician: Murphy Hutchison MD Admitting Clinician: Harmony Campbell MD Attending Physician on discharge: Lorena Vides MD Date of Discharge: 04/24/24 DS: Diagnosis Discharge Diagnosis (1) Sepsis: Status: Acute Problem details: - During [facility] Urgent Care visit on 04/22: HR 120, T 101.6, WBC 15.81, lactate WNL @ 1.1, source appears to be UTI, also noted to have bronchial thickening - Zosyn initiated on 04/22, tolerated well - blood culture NGTD, urine culture + for E Coli (2) CAP (community acquired pneumonia): Status: Acute Problem details: - CT 04/22: [id number] central bronchial thickening, mucoid impaction of the lower lobe bronchi, basilar atelectasis, parenchymal scar - Continue Zosyn as initiated in ED (04/22) - Mucinex b.i.d., Tessalon Perles p.r.n. incentive spirometry, Aerobika, home medications - Sputum cx pending upon discharge (3) Urinary tract infection: Status: Acute Problem details: - UA cloudy, 2+ LE, >100 WBC, bacteria. UC pending - E Coli UTI, discharge on oral Cipro with routine PCP and Urology f/u (4) Hyponatremia: Status: Acute Problem details: - Acute, in setting of infection, fever/insensible loss, poor po intake - Sodium 129 on admission, 134 on discharge; patient eating and drinking normally (5) CKD (chronic kidney disease): Status: Acute Problem details: - Creatinine 1.0 on admission (down to 0.9 on discharge), previous 0.9-1.99 - Avoid nephrotoxic medications, renally dose IV antibiotics, monitor (6) Hypertension: Status: Chronic Problem details: - continue home medications with holding parameters (7) Hyperlipidemia: Status: Chronic Problem details: - continue home statin (8) History of Clostridioides difficile infection: Status: Acute Problem details: - severe illness in July 2023 - + Cdiff on 04/24, diarrhea improved after initiation of oral Vanco (had no loose stools on morning of discharge) DS: Summary Hospital Course Hospital Course: Patient is a 79-year-old female who presented to the urgent care clinic with fever, tachycardia, leukocytosis and positive UA with a history of chronic, recurrent UTIs. She was also noted to have a cough with a history of chronic bronchitis; CT on admission revealed bronchial thickening with no acute consolidation. Treated with Zosyn; noted to have loose stools on hospital day 1 and C diff positive (history of C diff in the past); oral vancomycin initiated. On hospital day 2, patient was noted significant improvement in symptoms and decrease in diarrheal stools (had gone 6 hours without diarrhea morning of discharge), requesting discharge home. Blood cultures remained negative, urine culture positive for E coli. Given sensitivities and allergies, she is discharged home on ciprofloxacin and oral vancomycin. She will have close follow-up with her PCP and urologist. Status at Discharge Functional status at discharge: independent ambulation Overall status at discharge: patient is progressing back to baseline Time Spent with Patient Time attestation: Total time spent providing and/or coordinating discharge services: Time spent: Greater than 30 minutes Specific discharge activities: Medication reconciliation, patient Education, documentation Exam Narrative: Exam Narrative: GEN: Alert and oriented, sitting up in bed and appears much brighter than yesterday HEENT: Normal external ears, EOMIs bilaterally, no scleral icterus CV: RRR, No concerning murmurs R: + rhonchi in bilateral apices, no wheezing, air movement adequate Ext: wwp, no concerning edema Skin: No concerning skin lesions or rashes on exposed skin Neuro: No focal deficits Psych: Appropriate Const: Vital Signs, click to edit/add: Vital Signs - 24 hr 04/23/24 15:00 04/23/24 15:00 04/23/24 18:11 Temperature 98.8 F Pulse Rate 89 Pulse Rate [Pulse Oximeter] 90 90 Respiratory Rate 16 16 Blood Pressure [Le ft Arm] Blood Pressure [Ri ght Arm] 137/74 Pulse Oximetry 96 Oxygen Delivery Me thod Room Air 04/23/24 21:52 04/23/24 22:53 04/24/24 01:07 Temperature 98.4 F Pulse Rate 87 Pulse Rate [Pulse Oximeter] 85 78 Respiratory Rate 20 20 Blood Pressure [Le ft Arm] Blood Pressure [Ri ght Arm] 128/66 Pulse Oximetry 96 Oxygen Delivery Me thod Room Air 04/24/24 05:25 04/24/24 07:00 04/24/24 07:00 Temperature 98.9 F 97.6 F Pulse Rate 81 Pulse Rate [Pulse Oximeter] 88 81 Respiratory Rate 20 20 Blood Pressure [Le ft Arm] 140/70 H 141/95 H Blood Pressure [Ri ght Arm] Pulse Oximetry 93 96 Oxygen Delivery Me thod Room Air Room Air 04/24/24 07:00 Temperature Pulse Rate Pulse Rate [Pulse Oximeter] 81 Respiratory Rate 20 Blood Pressure [Le ft Arm] Blood Pressure [Ri ght Arm] Pulse Oximetry Oxygen Delivery Me thod DS: Data Data Completed and Pending Labs on day of discharge: Labs from last 24 hours 04/24/24 04/23/24 04/23/24 06:18 Unknown 05:53 WBC 8.25 RBC 3.25 L Hgb 9.9 L Hct 30.0 L MCV 92 MCH 31 MCHC 33 RDW Coeff of Ashish 14.1 Plt Count 232 Neut % (Auto) 67.6 Lymph % (Auto) 21.7 [place] % (Auto) 9.1 Eos % (Auto) 1.2 Baso % (Auto) 0.2 Neut # (Auto) 5.57 Lymph # (Auto) 1.79 [place] # (Auto) 0.80 Eos # (Auto) 0.10 Baso # (Auto) 0.02 Abs Immat Gran (auto) 0.02 Imm/Tot Granulo (auto) 0.2 Sodium 134 L Potassium 3.6 Chloride 111 Carbon Dioxide 20 Anion Gap 3 L BUN 7 Creatinine 0.9 Estimated Creat Clear 41.72 Estimated GFR 65 Glucose 100 Calcium 8.1 L Magnesium 2.0 Total Bilirubin 0.5 AST 41 H ALT 40 H Alkaline Phosphatase 116 C-React Prot High Sens Pending 214.0 H Total Protein 5.7 L Albumin 3.0 L Procalcitonin 1.13 H Stl C. diff Tox B Gene POSITIVE A* Stl C. diff [id number] PRESUMPTIVE NEGATIVE Preliminary micro results at discharge 04/22/24 Unknown Sputum Culture - Preliminary Sputum - Expectorated Sputum 04/22/24 20:15 Blood Culture - Preliminary Blood NO GROWTH AFTER 24 HOURS 04/22/24 18:05 Blood Culture - Preliminary Blood NO GROWTH AFTER 24 HOURS Discharge Plan Discharge Disposition: Home, Self-Care Date of Admission: 04/22/24 20:53 Attending Provider on Discharge: Lorena Vides Primary Care Provider: Murphy Hutchison Condition: Improved Anticipated Discharge Date/Time: 04/24/24 09:01 Discharge Medications: New vancomycin 125 mg Capsule 125 mg PO QID 9 Days Qty: 36 0RF ciprofloxacin HCl [Cipro] 250 mg tablet 250 mg PO BID Qty: 10 0RF Continued pregabalin 75 mg capsule 75 mg PO HS bupropion HCl 150 mg tablet extended release 24 hr 150 mg PO DAILY losartan 50 mg tablet 50 mg PO DAILY fluticasone propionate 50 mcg/actuation spray,suspension 2 spray intranasal DAILY tamsulosin [Flomax] 0.4 mg capsule 0.4 mg PO DAILY rosuvastatin 20 mg tablet 20 mg PO DAILY fluticasone propion-salmeterol 250-50 mcg/dose blister with device 1 ea INHALATION BID omeprazole 20 mg capsule,delayed release(DR/EC) 20 mg PO DAILY montelukast 10 mg tablet 10 mg PO QPM Discharge Orders: Discharge Order (Routine); Ordered 04/24/24 Ordered By: Lorena Vides Patient Education: Ciprofloxacin (By mouth), Vancomycin (By mouth), Urinary Tract Infection in Women (DC), C. Diff (Clostridioides Difficile) Infection (GEN) Additional Instructions: Your Urine culture grew E Coli, home on Ciprofloxacin (sent to your pharmacy). 9 more days of Vancomycin given + E Coli (also sent to your pharmacy). No changes to your home medications otherwise. See Dr. Hutchison as scheduled next week, we will fax paperwork to his office. Activity Level: Activity as Tolerated Discharge Diet: Regular Follow Up Appointments: Krystal Mar CNP [Staff Physician] - Murphy Hutchison MD [Primary Care Provider] - (keep appt scheduled for next week) Forms: [employer] Info Instructions Discharge Comments: Please fax H&P and labs to Dr. Hutchison at ( )
== END 2024-04-24 10:32 | disposition home or self-care (01) | DRG 871 ==
LOC: ED 19:23 → MEDSURG 20:44
PROVIDERS: Family Medicine; Admitting Provider Physician Assistant; Emergency Provider Emergency Medicine; PCP Family Medicine; Visit Provider Family Medicine
DX: A41.9 Sepsis, unspecified organism (principal); J18.9 Pneumonia, unspecified organism; N39.0 Urinary tract infection, site not specified; Z16.24 Resistance to multiple antibiotics; J98.11 Atelectasis; E87.1 Hypo-osmolality and hyponatremia; A04.71 Enterocolitis due to Clostridium difficile, recurrent; I12.9 Hypertensive chronic kidney disease with stage 1 through stage 4 chronic kidney disease, or unspecified chronic kidney disease; N18.9 Chronic kidney disease, unspecified; E78.5 Hyperlipidemia, unspecified; F32.9 Major depressive disorder, single episode, unspecified
CPT/HCPCS: 36415; 71250; 80048; 80053; 83605; 83735; 84145; 84295; 85025; 85027; 86140; 86141; 87040; 87070; 87086; 87186; 87493; 94640; 99284; 99285; A9270; J1650; J2405; J2543; J7030

== ENCOUNTER 2025-06-10 09:36 | Outpatient (CLI) | payer MEDICARE, SELFPAY | END 2025-06-10 09:37 | disposition home or self-care (01) | LOC: NFLDREF 06-11 06:27 | PROVIDERS: Visit Provider Physician Assistant Medical | DX: R35.0 Frequency of micturition (principal); N39.0 Urinary tract infection, site not specified | CPT/HCPCS: 87086 ==